=== PATIENT | male | born 2005 | race Caucasian/White ===

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

== ENCOUNTER 2024-01-18 21:43 | Emergency (ER) | payer BC ==
[2024-01-18 21:54] VITALS: BP 124/82; PULSE 72; RESP 14; TEMP 98.4; BMI 29.7
[2024-01-18 22:41] LABS: HEMATOCRIT 47.4 % (35.4-49); HEMOGLOBIN 15.6 G/dL (11.7-16.9); MCH 29.9 pg (25.7-33.7); MCHC 32.8 g/dl (32.0-35.9); MEAN CELL VOLUME 90.9 fl (80-96); MEAN PLT VOLUME 8.5 fl (7.5-11.1); PLATELET COUNT 245.2 10^3/uL (134-434); RBC 5.21 10^6/uL (4.00-5.60); RDW 14.3 % (11.9-15.9); WHITE BLOOD COUNT 8.5 10^3/uL (4.0-10.8)
[2024-01-18 23:00] LABS: ALBUMIN 5.2 g/dl (3.4-5.0); BILIRUBIN,TOTAL 0.4 mg/dl (0.2-1); CALCIUM 10.3 mg/dl (8.5-10.1); POTASSIUM 3.8 mmol/L (3.5-5.1); TOT PROT 7.8 g/dl (6.4-8.2)
== END 2024-01-19 00:32 | disposition home or self-care (01) ==
LOC: FER 21:43
DX: N50.811 Right testicular pain (principal); I86.1 Scrotal varices; R10.32 Left lower quadrant pain
CPT/HCPCS: 36415; 76870-TC; 80053; 85027; 99284-25

== ENCOUNTER 2024-02-12 17:07 | Emergency (ER) | payer BC ==
[2024-02-12 17:47] VITALS: BP 139/84; PULSE 86; RESP 20; TEMP 98.8; BMI 29.7
[2024-02-12] MEDS ORDERED: KETOROLAC TROMETHAMINE 30 MG/1 ML VIAL ONE (17:48)
[2024-02-12] MEDS ORDERED: METHOCARBAMOL 500 MG TABLET ONE (17:48)
[2024-02-12] MEDS ORDERED: LIDOCAINE 5% TOPICAL PATCH ONE (17:49)
[2024-02-12] MEDS: METHOCARBAMOL 500 MG TABLET PO ONE (17:56)
[2024-02-12] MEDS: KETOROLAC TROMETHAMINE 30 MG/1 ML VIAL IM ONE (17:56)
[2024-02-12] MEDS: LIDOCAINE 5% TOPICAL PATCH TP ONE (17:56)
[2024-02-13] MEDS ORDERED: LIDOCAINE PATCH REMOVAL MC SCH (06:00)
== END 2024-02-12 19:24 | disposition home or self-care (01) ==
LOC: FER 17:07
PROC: 3E0133Z Introduction of Anti-inflammatory into Subcutaneous Tissue, Percutaneous Approach (ICD-10-PCS; principal; 2024-02-12)
DX: M54.2 Cervicalgia (principal); M54.50 Low back pain, unspecified
CPT/HCPCS: 72050-TC-FY; 72100-TC-FY; 99284-25